=== PATIENT | female | born 1995 ===

== ENCOUNTER 2021-04-20 08:12 | Outpatient (CLI) | payer OTHER ==
[~2021-04-20 08:12] MED LIST: [UNRECOGNIZED DRUG - REMARK]
== END 2021-04-20 08:59 | disposition home or self-care (01) ==
LOC: PRENATAL 08:12
PROVIDERS: ATTEND Obstetrics & Gynecology Maternal & Fetal Medicine
DX: O35.0XX1 Maternal care for (suspected) central nervous system malformation in fetus, fetus 1 (principal); O35.3XX1 Maternal care for (suspected) damage to fetus from viral disease in mother, fetus 1; O98.512 Other viral diseases complicating pregnancy, second trimester; Z36.89 Encounter for other specified antenatal screening; Z3A.19 19 weeks gestation of pregnancy

== ENCOUNTER 2021-07-09 14:50 | Outpatient (CLI) | payer OTHER | END 2021-07-09 16:30 | disposition home or self-care (01) | LOC: PRENATAL 14:50 | PROVIDERS: ATTEND Obstetrics & Gynecology Maternal & Fetal Medicine | DX: O36.5990 Maternal care for other known or suspected poor fetal growth, unspecified trimester, not applicable or unspecified (principal); O36.8199 Decreased fetal movements, unspecified trimester, other fetus ==

== ENCOUNTER 2021-07-29 10:55 | Outpatient (CLI) | payer OTHER | END 2021-07-29 11:20 | disposition home or self-care (01) | LOC: PRENATAL 10:55 | PROVIDERS: ATTEND Obstetrics & Gynecology Maternal & Fetal Medicine | DX: O26.849 Uterine size-date discrepancy, unspecified trimester (principal); O36.8199 Decreased fetal movements, unspecified trimester, other fetus ==

== ENCOUNTER 2021-08-18 08:18 | Outpatient (CLI) | payer OTHER | END 2021-08-18 09:00 | disposition home or self-care (01) | LOC: PRENATAL 08:18 | PROVIDERS: ATTEND Obstetrics & Gynecology Maternal & Fetal Medicine | DX: O26.849 Uterine size-date discrepancy, unspecified trimester (principal); O36.8199 Decreased fetal movements, unspecified trimester, other fetus; Z3A.37 37 weeks gestation of pregnancy ==

== ENCOUNTER 2021-08-22 11:48 | Outpatient (CLI) | payer OTHER ==
[2021-08-22] MEDS ORDERED: PRENATAL CAPLE1 EAC1 PO (12:25)
== END 2021-08-23 07:17 | disposition home or self-care (01) ==
LOC: OBS/DEL 11:48
PROVIDERS: ATTEND Obstetrics & Gynecology
DX: O99.513 Diseases of the respiratory system complicating pregnancy, third trimester (principal); O23.43 Unspecified infection of urinary tract in pregnancy, third trimester; N39.0 Urinary tract infection, site not specified; Z3A.38 38 weeks gestation of pregnancy; Z20.822 Contact with and (suspected) exposure to COVID-19